=== PATIENT | male | born 1990 | race Hispanic/Latino ===

== ENCOUNTER 2025-02-07 00:20 | Emergency (ER) | payer BC, OTHER ==
[~2025-02-07] VITALS: Ht 172.7 cm; Wt 142.9 kg
--- NOTE | 2025-02-07 00:25 | NUR ---
UA CUP PROVIDED
[2025-02-07 00:39] LABS: ADD UA MICROSCOPIC YES; APPEARANCE,URINE CLEAR (CLEAR); BILIRUBIN,URINE NEGATIVE (NEGATIVE); COLOR,URINE LIGHT-YELLOW (YELLOW); GLUCOSE, URINE (UA) NEGATIVE (NEGATIVE); KETONES,URINE NEGATIVE (NEGATIVE); LEUKOCYTE ESTERASE ,URINE 250 Leu/uL (NEGATIVE); NITRATE,URINE NEGATIVE (NEGATIVE); OCCULT BLOOD,URINE SMALL (NEGATIVE); PH,URINE 6.5 (5.0-8.0); PROTEIN,URINE NEGATIVE (NEGATIVE); UROBILINOGEN,URINE 0.2 mg/dL (0.2-1.0)
[2025-02-07 00:43] LABS: BACTERIA,URINE RARE /HPF (None Seen); SQUAMOUS EPITHELIAL CELL,UR RARE /HPF (0-2); WBC,URINE 51-100 /HPF (0-1)
[2025-02-07 00:47] LABS: CREATININE 0.7 mg/dL (0.5-1.3); POTASSIUM 3.9 mmol/L (3.5-5.1)
[2025-02-07 00:51] LABS: BASOPHILS # (AUTO) 0.04 K/uL (0.00-0.20); BASOPHILS % (AUTO) 0.3 % (0.0-5.0); EOSINOPHILS % (AUTO) 1.7 % (0.0-8.0); HEMATOCRIT 44.1 % (42-54); IMMATURE GRANULOCYTE ABSOLUTE 0.08 K/uL (0-1); LYMPHOCYTES # (AUTO) 2.4 K/uL (1.0-4.8); LYMPHOCYTES % (AUTO) 20.9 % (21.0-51.0); MEAN CORPUSCULAR HEMOGLOBIN 29.7 pg (27.0-33.0); MEAN CORPUSCULAR HGB CONC 34.5 g/dL (32.0-36.0); MEAN CORPUSCULAR VOLUME 86.1 fL (79-99); MONOCYTES # (AUTO) 1.1 K/uL (0.1-1.0); MONOCYTES % (AUTO) 9.5 % (3.0-13.0); NEUTROPHILS # (AUTO) 7.8 K/uL (1.8-7.7); NEUTROPHILS % (AUTO) 66.9 % (40.0-77.0); PLATELET COUNT (AUTO) 294 K/uL (130-400); RED BLOOD CELL COUNT(AUTO) 5.12 MIL/uL (4.50-6.20); RED CELL DISTRIBUTION WIDTH 13.1 % (11.0-15.5); WHITE BLOOD COUNT (AUTO) 11.7 K/uL (4.8-10.8)
[2025-02-07] MEDS: ketOROlac 30MG VIAL (30MG/ML) IVP ONE (01:07)
[2025-02-07] MEDS: 0.9%NACL 1000ML 1,000 ML IV ONE (01:07)
[2025-02-07] MEDS: ondanSETRON 4MG INJ IVP ONE (01:07)
[2025-02-07] MEDS: cefTRIAXone 1G VIAL IVPB ONE (01:07)
[2025-02-07] MEDS ORDERED: LEVO750T68 PO (02:44)
--- NOTE | 2025-02-07 02:45 | ERN ---
ED Note History of Present Illness Stated Complaint: LOW BACK PAIN, PAINFUL URINATION W/FREQUENCY Chief Complaint: Painful Urination Time Seen by MD: 00:22 Time Seen by Midlevel: 00:22 Dictation: The patient is a 34-year-old male with a history of fatty liver, kidney stones who presents to the emergency department with complaints of burning urination, bilateral flank pain, chills, frequent urination onset three weeks ago. Patient reports nausea but denies any vomiting. Denies any hematuria. Denies any penile discharge. Allergies: Coded Allergies: No Known Allergies (Unverified Allergy, Unknown, 02/07/25) Past Medical History Past Medical History: Other Additional Past Medical Hx: FATTY LIVER Surgical History: Other Surgical History Other: LEFT ACL X 2 RN Note Reviewed/Agreed w/PFSH: Yes Review of System Dictation Constitutional: Negative for fever,chills, and weight loss Eyes: Negative for injury, pain,redness, and discharge ENT: Negative for injury,pain or swelling Cardiovascular: Negative for chest pain, palpitations, and edema Respiratory: Negative for shortness of breath, cough, and wheezing, Abdomen/GI: Negative for abdominal pain, nausea, vomiting, diarrhea, and constipation Back: Negative for injury and pain : Negative for injury, bleeding and discharge positive for painful urination, bilateral flank pain MS/Extremity: Negative for injury and deformity Skin: Negative for rash, and discoloration Neuro: Negative for headache, weakness, numbness, tingling, and seizure Psych: Negative for suicide ideation, homicidal ideation, and hallucinations Initial Vital Sign VS Vital Signs Date Time Temp Pulse Resp B/P (MAP) Pulse Ox O2 Delivery O2 Flow Rate FiO2 02/07/25 00:22 99.7 102 18 158/88 97 Room Air 02/07/25 00:45 0 21 Physical Exam Dictation Vital Signs reviewed General Appearance: Alert, oriented x 3, no acute distress, well developed, nourished. Head and Face: non-traumatic. Eyes: PERRL, pink conjunctivas, eyelid no trauma, anterior chamber with arcus senilis. Ears: Pinnas intact and no signs of trauma or erythema ear canals clear and no discharge TM no erythema Nose: No discharge, no bleeding. Oropharynx: Mouth normal, tongue pink. pharynx clear,no erythema, tonsils no exudates, no abscesses noted, mucous membrane moist Neck: Supple, non-tender, no thyromegaly, no masses, no JVD, no bruits Breast:Deferred Chest:No tenderness, no crepitus, no paradoxical movement, no retractions Lungs:Clear, well-ventilated, symmetric, no rales, no wheezing, no rhonchi, no stridor, good breath sounds bilaterally Heart: Regular rate, regular rhythm, no murmur, no gallops Vascular: no peripheral edema, Abdomen: Soft, positive bowel sounds, nondistended, no guarding, nontender, no rebound, no masses no hepatomegaly, no splenomegaly, no Scott's sign, no hernias. Rectal: Deferred Genital: Deferred Neurological: Normal speech, motor function intact, sensory function intact Musculoskeletal: Neck nontender, full range of motion, back nontender, full range of motion, Extremities: nontender, full range of motion Skin: Color pink, dry, no turgor, no rash, no lacerations, no abrasions, no contusions. Lymphatic: Deferred Results (Laboratory/Radiology) Laboratory/Radiology Laboratory Tests Test 02/07/25 00:27 02/07/25 00:31 Urine Color LIGHT-YELLOW (YELLOW) Urine Appearance CLEAR (CLEAR) Urine pH 6.5 (5.0-8.0) Urine Specific [place] 1.006 (1.001-1.031) Urine Protein NEGATIVE mg/dL (NEGATIVE) Urine Glucose (UA) NEGATIVE mg/dL (NEGATIVE) Urine Ketones NEGATIVE mg/dL (NEGATIVE) Urine Occult Blood SMALL (NEGATIVE) H Urine Nitrate NEGATIVE (NEGATIVE) Urine Bilirubin NEGATIVE mg/dL (NEGATIVE) Urine Urobilinogen 0.2 mg/dL (0.2-1.0) Urine Leukocyte Esterase 250 Valentina/uL (NEGATIVE) H Urine RBC 2-5 /HPF (0-1) H Urine WBC 51-100 /HPF (0-1) H Urine Squamous Epithelial Cells RARE /HPF (0-2) Urine Bacteria RARE /HPF (None Seen) White Blood Count 11.7 K/uL (4.8-10.8) H Red Blood Count 5.12 MIL/uL (4.50-6.20) Hemoglobin 15.2 g/dL (14.0-18.0) Hematocrit 44.1 % (42-54) Mean Corpuscular Volume 86.1 fL (79-99) Mean Corpuscular Hemoglobin 29.7 pg (27.0-33.0) Mean Corpuscular Hemoglobin Concent 34.5 g/dL (32.0-36.0) Red Cell Distribution Width 13.1 % (11.0-15.5) Platelet Count 294 K/uL (130-400) Mean Platelet Volume 9.9 fL (7.5-10.5) Immature Granulocyte % (Auto) 0.7 % (0-1) Neutrophils (%) (Auto) 66.9 % (40.0-77.0) Lymphocytes (%) (Auto) 20.9 % (21.0-51.0) L Monocytes (%) (Auto) 9.5 % (3.0-13.0) Eosinophils (%) (Auto) 1.7 % (0.0-8.0) Basophils (%) (Auto) 0.3 % (0.0-5.0) Neutrophils # (Auto) 7.8 K/uL (1.8-7.7) H Lymphocytes # (Auto) 2.4 K/uL (1.0-4.8) Monocytes # (Auto) 1.1 K/uL (0.1-1.0) H Eosinophils # (Auto) 0.20 K/uL (0.00-0.70) Basophils # (Auto) 0.04 K/uL (0.00-0.20) Absolute Immature Granulocyte (auto 0.08 K/uL (0-1) Nucleated Red Blood Cells 0.0 % (0.0-0.19) Sodium Level 138 mmol/L (136-145) Potassium Level 3.9 mmol/L (3.5-5.1) Chloride Level 101 mmol/L (101-111) Carbon Dioxide Level 28 mmol/L (21-32) Blood Urea Nitrogen 9 mg/dL (7-18) Creatinine 0.7 mg/dL (0.5-1.3) Glomerular Filtration Rate Calc 122 mL/min (>90) Random Glucose 149 mg/dL (70-105) H Total Calcium 8.9 mg/dL (8.5-10.1) CT abdomen and pelvis without contrast - no evidence of renal calculi or hydronephrosis. No calculi are noted within the urinary bladder. The gallbladder is contracted. No calcified gallstones were seen. Unremarkable CT scan appearance noted the appendix. A large fatty liver. There are some degenerative changes in the spine Labs Reviewed?: Yes ED Course ED Course Orders Procedure Category Date Status Time Urinalysis Profile LAB 02/07/25 Complete 00:26 Cbc With Differential LAB 02/07/25 Complete 00:34 0.9%Nacl 1000ml (Ns PHA 02/07/25 Complete 1000ml) 01:00 Ketorolac PHA 02/07/25 Complete Tromethamine 30mg/Ml 01:00 Ondansetron 4mg Inj PHA 02/07/25 Complete (Zofran 4mg Inj) 01:00 Ct Abdomen/Pelvis W/O CT 02/07/25 Taken Contrast 00:34 Basic Metabolic Panel LAB 02/07/25 Complete 00:34 Culture Urine MUSTAPHA 02/07/25 In Process 00:40 Ceftriaxone 1g Vial PHA 02/07/25 Complete (Rocephine 1g Inj) 01:00 Current Medications Medications (Trade) Dose Ordered Sig/Virgen Route PRN Reason Start Time Stop Time Status Last Admin Dose Admin Ceftriaxone Sodium (ROCEphine 1G INJ) 1 gm ONCE ONCE IVPB 02/07/25 01:00 02/07/25 01:01 DC 02/07/25 01:07 Ketorolac Tromethamine (toRADol) 30 mg ONCE ONCE IVP 02/07/25 01:00 02/07/25 01:01 DC 02/07/25 01:07 Ondansetron HCl (zoFRAN 4MG INJ) 4 mg ONCE ONCE IVP 02/07/25 01:00 02/07/25 01:01 DC 02/07/25 01:07 Sodium Chloride 1,000 ml @ 0 mls/hr ONCE ONCE IV 02/07/25 01:00 02/07/25 01:01 DC 02/07/25 01:07 Vital Signs Date Time Temp Pulse Resp B/P (MAP) Pulse Ox O2 Delivery O2 Flow Rate FiO2 02/07/25 01:20 98.6 88 19 132/74 98 Room Air* 0 21 02/07/25 00:45 98.4 79 18 127/74 98 Room Air* 0 02/07/25 00:22 99.7 102 18 158/88 97 Room Air Medical Decision Making MDM The patient is a 34-year-old male with a history of fatty liver, kidney stones who presents to the emergency department with complaints of burning urination, bilateral flank pain, chills, frequent urination onset three weeks ago. Patient reports nausea but denies any vomiting. Denies any hematuria. Denies any penile discharge. CBC showed mild leukocytosis, no anemia, chemistry showed a no electrolyte imbalance, glucose of 149, urinalysis positive for leukocyte esterase, WBCs. Patient was treated with Rocephin. CT abdomen and pelvis showed no evidence of renal calculi or hydronephrosis. Unremarkable CT scan of the appendix. On physical exam patient is in no acute distress, nontender abdomen to palpation. Patient with stable vital signs. We will be discharged on antibiotics and instructed to follow up with PCP. Labs and imaging discussed with the patient who agrees to be discharged Differential diagnosis: UTI, pyelonephritis, kidney stones, dehydration, electrolyte imbalance Need for hospitalization: Patient does not meet criteria for hospitalization. There are no social concerns with this patient. DX & DISP Disposition: Discharge Departure Impression: Primary Impression: UTI (urinary tract infection) Condition: Stable Scripts Levofloxacin (Levaquin 750Mg Tabs) 750 Mg Tablet 750 MG PO DAILY for 7 Days, #7 TAB 0 Refills Prov: JOHN YAP ICE PULLER 02/07/25 Additional Instructions: Your labs were unremarkable. Urinalysis is positive for urinary tract infection. It is important that you take your antibiotics as prescribed and until finished even if you start feeling better. Your CT scan was unremarkable. Follow up with the primary doctor in 1-2 days. You will need to follow up on urine culture. FOLLOW-UP WITH PRIMARY CARE PROVIDER IN 1 TO 2 DAYS. TAKE MEDICATIONS D IRECTED HERE IN THE EMERGENCY ROOM. OKAY TO CONTINUE HOME MEDICATIONS UNLESS OTHERWISE DISCUSSED DURING YOUR VISIT IN THE EMERGENCY ROOM TODAY. RETURN TO YOUR NEAREST EMERGENCY ROOM IF SYMPTOMS WORSEN OR IF THERE IS NO IMPROVEMENT. CALL 911 IF YOU NEED IMMEDIATE ASSISTANCE. TAKE TYLENOL OR MOTRIN [id number] NEEDED AND IF NO CONTRAINDICATIONS ARE PRESENT. INCREASE ORAL HYDRATION. A WOUND CULTURE OR URINE CULTURE WAS ORDERED HERE IN THE EMERGENCY ROOM DEPARTMENT PLEASE FOLLOW-UP WITH PRIMARY CARE PROVIDER AND ADVISE THEM TO GET REPEAT PORTS FROM OUR FACILITY. IF YOU HAD ANY PAUL WRAP/SPLINTS THAT WERE APPLIED HERE, PLEASE DO NOT REMOVE THEM UNTIL YOU SEE YOUR PRIMARY CARE OR SPECIALTY. Referrals: JOSELINE LIANG MD (PCP) Time of Disposition: 02:42 I have reviewed the case, and I agree with, Diagnosis and Plan JOHN YAP [facility] Feb 07, 2025 02:45
[2025-02-07 02:56] VITALS: BP 128/81; PULSE 75; RESP 19; TEMP 98.4; O2SAT 98
--- NOTE | 2025-02-07 08:17 | HMCIMG ---
Exam Type: CT ABDOMEN/PELVIS W/O CONTRAST Clinical Information: bilateral flank pain, r/o kidney stones Comparison: None CT Dose Index (CTDI): 10.20 mGy Dose Length Product (DLP): 530.00 total mGy-cm PROTOCOL: Routine noncontrast helical scanning of the abdomen and pelvis was performed at 5mm collimation. Findings: No evidence of nephro or ureterolithiasis is found. No hydronephrosis or ureteral dilatation is seen. The lung bases are clear. The stomach is unremarkable. It shows no wall thickening. No gross ulceration is seen. It is not overly distended. There are no surrounding inflammatory changes. No wall lesions are identified to suggest cancer. The spleen is unremarkable. It is not enlarged. The pancreas shows normal anatomy. It is not fatty replaced. It shows no lesions. The pancreatic duct is not dilated. The gallbladder is unremarkable. It shows no cholelithiasis. The gallbladder wall is normal in thickness. There is no pericholecystic fluid. The is no acute or chronic inflammation noted. The adrenal glands are unremarkable. There is no enlargement. No lesions are noted. The liver is unremarkable. It shows no focal masses. The appendix is unremarkable. It shows no evidence of inflammation. No appendicolith is seen. The small bowel is unremarkable. There is no evidence of dilatation to suggest obstruction. No evidence of adynamic ileus is seen. There is no small bowel wall thickening to suggest enteritis. The colon is unremarkable. The urinary bladder is unremarkable. There is no wall thickening to suggest tumor or inflammation. There are no intraluminal calculi. There are no diverticula. There is no evidence of chronic bladder outlet obstruction. There is no evidence of urinary bladder distention to suggest urinary retention. The other pelvic structures are unremarkable. The bony and vascular structures are unremarkable for the patient's age. IMPRESSION: NEGATIVE CT SCAN OF THE ABDOMEN AND PELVIS. NO RENAL STONES. NO ACUTE PATHOLOGY OR INFLAMMATION SEEN. This study was performed using dose reduction techniques to include automated exposure control and/or adjustment of the mA and/or kV according to patient size.
== END 2025-02-07 02:58 | disposition home or self-care (01) ==
LOC: EDH 00:20
DX: N39.0 Urinary tract infection, site not specified (principal); K76.0 Fatty (change of) liver, not elsewhere classified; Z98.890 Other specified postprocedural states
CPT/HCPCS: 99284; 74176; 96374; 96375; 80048; 85025; 87086 ×2; 87186; 81001; 36415; J1885; J7030; J0696; J2405

== ENCOUNTER → 2025-08-05 | Outpatient (CLI) | payer BC ==
[~2025-08-05] MED LIST: LEVO750T68 PO
[2025-08-05 09:59] LABS: ASPARTATE AMINOTRANSFERASE 33.0 U/L (10-37); CREATININE 0.9 mg/dL (0.5-1.3); GLOMERULAR FILTR. RATE CALC 113.0 mL/min (>90); GLUCOSE,RANDOM 94.0 mg/dL (70-105); LDL DIRECT 79.0 mg/dL (0-99); SODIUM SERUM 139.0 mmol/L (136-145); TOTAL PROTEIN, SERUM 7.9 g/dL (6.0-8.3); UREA NITROGEN, BLOOD 8.0 mg/dL (7-18)
== END | disposition home or self-care (01) ==
LOC: LAB 08:54
PROVIDERS: ATTEND Family Medicine
DX: E11.42 Type 2 diabetes mellitus with diabetic polyneuropathy (principal); E78.2 Mixed hyperlipidemia; A04.8 Other specified bacterial intestinal infections
CPT/HCPCS: 36415; 80053; 80061; 83036